=== PATIENT | male | born 1970 | race Caucasian/White ===

== ENCOUNTER 2016-06-07 18:42 | Emergency (ER) | payer OTHER ==
[~2016-06-07 18:42] MED LIST: ACETAMINOPHEN325 MG PO; ZESTRIL20 MG PO
== END 2016-06-07 19:45 | disposition home or self-care (01) ==
LOC: ER 18:42
DX: S20.361A Insect bite (nonvenomous) of right front wall of thorax, initial encounter (principal); I10 Essential (primary) hypertension; Z79.899 Other long term (current) drug therapy; W57.XXXA Bitten or stung by nonvenomous insect and other nonvenomous arthropods, initial encounter